=== PATIENT | female | born 1990 | race African-American/Black ===

== ENCOUNTER 2025-02-18 05:09 | Emergency (ER) | payer OTHER, BC ==
[~2025-02-18] VITALS: Ht 157.5 cm; Wt 63.0 kg
[2025-02-18 05:35] VITALS: O2SAT 100
[2025-02-18 06:47] LABS: BASOPHILS % 0.5 % (0.0-2.0); EOSINOPHILS % 0.2 % (0.0-5.0); HEMATOCRIT. 41.6 % (36.0-48.0); HEMOGLOBIN. 13.6 g/dL (12.0-16.0); LYMPHOCYTES % 35.4 % (20.0-50.0); MEAN PLATELET VOLUME 9.1 fl (7.4-10.4); MONOCYTES % 5.0 % (2.0-8.0); NEUTROPHILS % 58.9 % (40.0-76.0); PLATELET 267 x1000/uL (130-400); RED BLOOD CELL COUNT 4.63 mill/uL (4.2-5.4); RED CELL DISTRIBUTION WIDTH 13.4 % (11.6-14.6)
[2025-02-18 06:49] LABS: CREATININE 0.6 mg/dL (0.6-1.0)
[2025-02-18 06:50] LABS: UREA NITROGEN BLOOD 9 mg/dL (9-23)
[2025-02-18 06:51] LABS: ASPARTATE AMINOTRANSFERASE 23 IU/L (<34)
[2025-02-18 06:52] LABS: BILIRUBIN TOTAL 0.3 mg/dL (0.1-1.0); PROTEIN TOTAL 7.8 g/dL (6.0-8.3)
[2025-02-18 07:06] LABS: HCG SCREEN NEGATIVE
[2025-02-18] MEDS ORDERED: BO1 TP (07:42)
[2025-02-18] MEDS: BACITRACIN ZINC OINT UDPKT TOP ONE (08:36)
[2025-02-18] MEDS ORDERED: IOHEXOL-300 100 ML BOTTLE ONE (09:12)
[2025-02-18 10:01] VITALS: BP 121/75; PULSE 83; RESP 18; TEMP 36.8; O2SAT 99
== END 2025-02-18 10:11 | disposition home or self-care (01) ==
LOC: ER 05:09
DX: S09.8XXA Other specified injuries of head, initial encounter (principal); R10.30 Lower abdominal pain, unspecified; M25.562 Pain in left knee; M25.561 Pain in right knee; M25.552 Pain in left hip; V49.9XXA Car occupant (driver) (passenger) injured in unspecified traffic accident, initial encounter; Y92.410 Unspecified street and highway as the place of occurrence of the external cause; Y93.89 Activity, other specified; Y99.8 Other external cause status
CPT/HCPCS: 80053; 84703; 83690; 85025; 36415; 73502; 73562; 70450; 74177; 99285; Q9967; Z7610; 99284